=== PATIENT | female | born 1990 | race African-American/Black ===

== ENCOUNTER 2016-07-09 15:40 | Emergency (ER) | payer OTHER ==
[~2016-07-09] VITALS: Ht 170.2 cm; Wt 122.5 kg
[~2016-07-09 15:40] MED LIST: IBUPROFEN 600600 M1 PO; NORCO 5-325 TA1 EAC1 PO
[2016-07-09 16:08] LABS: URINE BILIRUBIN NEGATIVE (Negative); URINE BLOOD NEGATIVE (Negative); URINE COLOR YELLOW; URINE GLUCOSE-RANDOM* NEGATIVE (Negative); URINE KETONES TRACE (Negative); URINE LEUKOCYTES-REFLEX NEGATIVE (Negative); URINE PROTEIN (DIPSTICK) NEGATIVE (Negative); URINE SPECIFIC GRAVITY 1.025 (1.003-1.035); URINE UROBILINOGEN 0.2 E.U./dl (0.2-1.0)
[2016-07-09 17:00] VITALS: BP 124/74
== END 2016-07-09 17:19 | disposition home or self-care (01) ==
LOC: ER 15:40
PROVIDERS: Emergency Medicine
DX: O26.892 Other specified pregnancy related conditions, second trimester (principal); Z3A.22 22 weeks gestation of pregnancy; B34.9 Viral infection, unspecified; R05 Cough; Z88.8 Allergy status to other drugs, medicaments and biological substances

== ENCOUNTER 2018-09-17 09:57 | Emergency (ER) | payer OTHER ==
[~2018-09-17] VITALS: Ht 172.7 cm; Wt 145.6 kg
[2018-09-17 10:18] LABS: URINE BILIRUBIN NEGATIVE (Negative); URINE BLOOD TRACE (Negative); URINE CLARITY CLEAR; URINE COLOR YELLOW; URINE GLUCOSE-RANDOM* NEGATIVE (Negative); URINE KETONES NEGATIVE (Negative); URINE LEUKOCYTES-REFLEX NEGATIVE (Negative); URINE NITRITE-REFLEX NEGATIVE (Negative); URINE PROTEIN (DIPSTICK) NEGATIVE (Negative); URINE SPECIFIC GRAVITY >= 1.030 (1.005-1.035); URINE UROBILINOGEN 0.2 E.U./dl (0.2-1.0)
[2018-09-17 10:48] LABS: ABSOLUTE NEUTROPHILS 5.4 thou/uL (1.4-8.2); BASOPHILS 0.6 % (0.0-2.0); EOSINOPHILS 2.9 % (0.0-3.0); HEMATOCRIT 43.5 % (37.0-47.0); HEMOGLOBIN 14.2 gm/dL (12.0-15.0); LYMPHOCYTES 23.8 % (24.0-44.0); MCH 24.2 pg (26.0-34.0); MCHC 32.6 g/dL (28.0-37.0); MCV 74.3 fL (80.0-100.0); MONOCYTES 6.2 % (1.0-8.0); PLATELET COUNT 314 thou/uL (150-400); POLYS 66.5 % (36.0-66.0); RBC 5.86 mil/uL (4.20-5.00); RDW 16.7 % (10.5-14.5); WBC 8.1 thou/uL (4.0-11.0)
[2018-09-17 11:15] LABS: CALCIUM 9.5 mg/dL (8.5-10.1); CREATININE 0.9 mg/dL (0.6-1.0); POTASSIUM 4.1 mmol/L (3.5-5.1)
[2018-09-17 11:21] LABS: ALBUMIN 3.7 g/dL (3.4-5.0); TOTAL BILIRUBIN 0.3 mg/dL (<0.1-1.0); TOTAL PROTEIN 7.6 g/dL (6.4-8.2)
[2018-09-17] MEDS ORDERED: PEPCID40 MG PO (11:41)
[2018-09-17] MEDS ORDERED: ONDANSETRON HCL4 M2 PO (11:41)
[2018-09-17] MEDS ORDERED: CARAFATE 1 GM TA1 G1 PO (11:41)
[2018-09-17 11:43] VITALS: BP 138/78
== END 2018-09-17 12:02 | disposition home or self-care (01) ==
LOC: ER 09:57
PROVIDERS: Physician Assistant
DX: K29.70 Gastritis, unspecified, without bleeding (principal); K80.20 Calculus of gallbladder without cholecystitis without obstruction

== ENCOUNTER 2020-09-29 12:49 | Emergency (ER) | payer OTHER ==
[~2020-09-29] VITALS: Ht 172.7 cm; Wt 145.2 kg
[~2020-09-29 12:49] MED LIST changes: +CARAFATE 1 GM TA1 G1 PO; +ONDANSETRON HCL4 M2 PO; +PEPCID40 MG PO
[2020-09-29] MEDS ORDERED: AMLODIPINE BESY10 MG PO (12:53)
[2020-09-29 13:23] LABS: ABSOLUTE NEUTROPHILS 4.9 thou/uL (1.4-8.2); BASOPHILS 0.7 % (0.0-2.0); EOSINOPHILS 3.1 % (0.0-3.0); HEMATOCRIT 43.7 % (37.0-47.0); LYMPHOCYTES 29.3 % (24.0-44.0); MCHC 32.1 g/dL (28.0-37.0); MCV 74.8 fL (80.0-100.0); MONOCYTES 5.8 % (1.0-8.0); PLATELET COUNT 302 thou/uL (150-400); POLYS 61.1 % (36.0-66.0); RBC 5.84 mil/uL (4.20-5.00); RDW 16.7 % (10.5-14.5)
[2020-09-29 13:34] LABS: ANION GAP 7 mmol/L (7-16); BUN 9 mg/dL (7-18); CHLORIDE 103 mmol/L (98-107); CO2 29 mmol/L (21-32); CREATININE 0.9 mg/dL (0.6-1.0); GLUCOSE 114 mg/dL (74-106); POTASSIUM 4.2 mmol/L (3.5-5.1); SODIUM 139 mmol/L (136-145)
[2020-09-29 13:41] LABS: URINE BILIRUBIN NEGATIVE (Negative); URINE BLOOD 1+ (Negative); URINE CLARITY CLEAR; URINE COLOR YELLOW; URINE GLUCOSE-RANDOM* NEGATIVE (Negative); URINE KETONES NEGATIVE (Negative); URINE LEUKOCYTES-REFLEX TRACE (Negative); URINE NITRITE-REFLEX NEGATIVE (Negative); URINE PROTEIN (DIPSTICK) NEGATIVE (Negative); URINE UROBILINOGEN 0.2 E.U./dl (0.2-1.0)
[2020-09-29 13:45] LABS: ALBUMIN 3.6 g/dL (3.4-5.0); DIRECT BILIRUBIN < 0.1 mg/dL (<0.1-0.2); LIPASE 93 U/L (73-393); SGOT 20 U/L (15-37); SGPT 32 U/L (14-59); TOTAL BILIRUBIN 0.3 mg/dL (0.2-1.0); TOTAL PROTEIN 7.7 g/dL (6.4-8.2); TROPONIN-I <0.06 ng/mL (<0.06)
[2020-09-29 13:56] LABS: SQUAMOUS >10 Many /LPF (0-3)
[2020-09-29 13:57] LABS: URINE RBC 0-2 Rare /HPF (0-2); URINE WBC-REFLEX 0-5 Rare /HPF (0-5)
[2020-09-29 13:58] LABS: CASTS None Seen /LPF (None Seen); CRYSTALS None Seen /LPF (None Seen)
[2020-09-29] MEDS ORDERED: MOBIC7.5 MG PO (14:54)
[2020-09-29 15:01] VITALS: BP 128/81
--- NOTE | 2020-09-29 15:14 | EKG ---
[address] [address] ELECTROCARDIOGRAM REPORT Name: SREEDHAR SEQUEIRA [facility] [id number] Admission: 09/29/20 Attend Phys: Discharge: 09/29/20 Date of : [birth year] Report #: [id number] [facility] ED Test Date: 2020-09-29 Test Time: 12:53:58 Pat Name: SREEDHAR SEQUEIRA Department: Room: Gender: F [employer]: CODY : 1990 Requested By: Ki Hunter Order Number: [id number] MD: Vinicio Carpenter Measurements Intervals [place] Rate: 83 P: 45 MN: 141 QRS: 35 QRSD: 103 T: 26 QT: 373 QTc: 439 Interpretive Statements Sinus rhythm No significant abnormality No previous ECG available for comparison Electronically Signed On 09-29-2020 15:14:20 CDT by Vinicio Carpenter [email or web address] <ELECTRONICALLY SIGNED> By: Vinicio Caprenter MD, [facility] 09/29/20 1514 1253 [id number] Vinicio Carpenter MD, FACC /EPI
== END 2020-09-29 15:01 | disposition home or self-care (01) ==
LOC: ER 12:49
PROVIDERS: Nurse Practitioner
DX: M94.0 Chondrocostal junction syndrome [Tietze] (principal); R07.89 Other chest pain; I10 Essential (primary) hypertension; Z79.899 Other long term (current) drug therapy; Z88.8 Allergy status to other drugs, medicaments and biological substances